=== PATIENT | female | born 1975 | race Caucasian/White ===

== ENCOUNTER 2018-04-16 06:48 | Emergency (ER) | payer OTHER ==
[~2018-04-16] VITALS: Ht 170.2 cm; Wt 124.7 kg
[~2018-04-16 06:48] MED LIST: LANTUS SOLOSTAR3 ML; NEURONTIN600 MG
[2018-04-16] MEDS ORDERED: COZAAR50 MG (07:15)
[2018-04-16] MEDS ORDERED: HUMALOG100 UNIT/1 (07:15)
[2018-04-16] MEDS ORDERED: SYNJARDY 12.5-1 EACH (07:16)
== END 2018-04-16 10:48 | disposition home or self-care (01) ==
LOC: ER 06:48
DX: M25.511 Pain in right shoulder (principal); M62.838 Other muscle spasm

== ENCOUNTER 2020-08-13 06:30 | Day surgery (SDC) | payer OTHER ==
[~2020-08-13 06:30] MED LIST changes: +CARDESARTAN PO; +COZAAR50 MG; +ELAVIL PO; +ETODOLAC PO; +HUMALOG100 UNIT/1; +LORAZEPAN PO; +PLAQUINIL PO; +SINJARDY PO; +SYNJARDY 12.5-1 EACH
== END 2020-08-13 12:50 | disposition home or self-care (01) ==
LOC: CIR.AMB 06:30
PROVIDERS: ATTEND Orthopaedic Surgery Hand Surgery
DX: M65.331 Trigger finger, right middle finger (principal); M65.351 Trigger finger, right little finger; Z20.828 Contact with and (suspected) exposure to other viral communicable diseases